=== PATIENT | male | born 1965 | race Two or more races ===

== ENCOUNTER 2025-01-19 20:26 | Emergency (ER) | payer OTHER ==
[~2025-01-19] VITALS: Ht 185.4 cm; Wt 99.8 kg
[2025-01-19 21:51] VITALS: BP 110/72; TEMP 98; O2SAT 99
[2025-01-19] MEDS ORDERED: CEPH-570 PO (22:14)
[2025-01-19] MEDS ORDERED: MUPI15CR TP (22:14)
== END 2025-01-19 22:18 | disposition home or self-care (01) ==
LOC: ER 20:37
DX: S50.862A Insect bite (nonvenomous) of left forearm, initial encounter (principal); L08.9 Local infection of the skin and subcutaneous tissue, unspecified; W57.XXXA Bitten or stung by nonvenomous insect and other nonvenomous arthropods, initial encounter; Y93.89 Activity, other specified; Y92.89 Other specified places as the place of occurrence of the external cause; Y99.8 Other external cause status